=== PATIENT | female | born 1965 | race Caucasian/White ===

== ENCOUNTER 2018-01-28 23:24 | Emergency (ER) | payer SELFPAY ==
[~2018-01-28] VITALS: Ht 165.1 cm; Wt 56.7 kg
--- NOTE | 2018-01-29 01:25 | NUR ---
DR SHAKIRA DIXON MD AT BEDSIDE FOR MSE.
--- NOTE | 2018-01-29 01:47 | NUR ---
Patient discharged to home in stable conditon. Written and verbal after care instructions given. Patient verbalizes understanding of instructions.
[2018-01-29 01:50] VITALS: BP 144/70
== END 2018-01-29 01:51 | disposition home or self-care (01) ==
LOC: ER 23:26
DX: G89.29 Other chronic pain (principal); M54.9 Dorsalgia, unspecified
CPT/HCPCS: A4663

== ENCOUNTER 2018-03-02 23:20 | Emergency (ER) | payer SELFPAY ==
[~2018-03-02] VITALS: Ht 165.1 cm; Wt 55.3 kg
--- NOTE | 2018-03-02 23:43 | NUR ---
MD PEDRAZA AT BEDSIDE CONDUCTING MED EVAL
--- NOTE | 2018-03-03 00:02 | NUR ---
Patient discharged to home in stable conditon. Written and verbal after care instructions given. Patient verbalizes understanding of instructions. Patient reported a reduced amount of anxiety prior to discharge. Patient able to ambulate unassisted with steady gait. Patient left with all personal belongings.
[2018-03-03 00:06] VITALS: BP 111/63
== END 2018-03-03 | disposition home or self-care (01) ==
LOC: ER 23:20
DX: F13.239 Sedative, hypnotic or anxiolytic dependence with withdrawal, unspecified (principal); G89.29 Other chronic pain; Z88.8 Allergy status to other drugs, medicaments and biological substances
CPT/HCPCS: A4663

== ENCOUNTER 2018-03-04 23:24 | Emergency (ER) | payer SELFPAY ==
[~2018-03-04] VITALS: Ht 165.1 cm; Wt 55.3 kg
--- NOTE | 2018-03-04 23:35 | NUR ---
Dr. Cox at bedside for MSE.
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
--- NOTE | 2018-03-04 23:49 | NUR ---
Patient discharged to home in stable conditon. Written and verbal after care instructions given. Patient verbalizes understanding of instructions. Patient ambulated out of ER with steady gait, no acute signs of distress, VSS, all belongings taken.
[2018-03-04 23:52] VITALS: BP 92/58
== END 2018-03-04 23:52 | disposition home or self-care (01) ==
LOC: ER 23:27
DX: G89.29 Other chronic pain (principal); M54.9 Dorsalgia, unspecified; F41.9 Anxiety disorder, unspecified; Z88.8 Allergy status to other drugs, medicaments and biological substances
CPT/HCPCS: A4663

== ENCOUNTER 2018-04-15 16:36 | Emergency (ER) | payer SELFPAY ==
[~2018-04-15] VITALS: Ht 165.1 cm; Wt 55.3 kg
[2018-04-15 17:09] VITALS: BP 111/66
--- NOTE | 2018-04-15 17:09 | NUR ---
MSE COMPLETED, PT D/C'D HOME, ACI GIVEN, PT AMBULATED W/O DIFF/TOOK ALL BELONGINGS.
== END 2018-04-15 17:10 | disposition home or self-care (01) ==
LOC: ER 16:37
DX: G89.29 Other chronic pain (principal); M54.5 Low back pain; Z88.8 Allergy status to other drugs, medicaments and biological substances
CPT/HCPCS: A4663

== ENCOUNTER 2018-04-15 19:38 | Emergency (ER) | payer SELFPAY ==
[~2018-04-15] VITALS: Ht 160 cm; Wt 56.7 kg
--- NOTE | 2018-04-15 20:06 | NUR ---
Patient discharged to home in stable conditon. Written and verbal after care instructions given. Patient verbalizes understanding of instructions. Patient understands directions of pain medication prescription. VSS.
[2018-04-15 20:07] VITALS: BP 118/70
== END 2018-04-15 20:04 | disposition home or self-care (01) ==
LOC: ER 19:40
DX: G89.29 Other chronic pain (principal); M54.9 Dorsalgia, unspecified; Z88.8 Allergy status to other drugs, medicaments and biological substances
CPT/HCPCS: A4663

== ENCOUNTER 2018-05-15 02:19 | Emergency (ER) | payer SELFPAY ==
[~2018-05-15] VITALS: Ht 160 cm; Wt 54.4 kg
[2018-05-15] MEDS ORDERED: HYDROCODONE/APAP 5-325MG TABLET PO ONE (02:45)
[2018-05-15] MEDS ORDERED: HYDROCODONE/APAP 5-325MG TABLET ONE (02:51)
[2018-05-15 02:56] VITALS: BP 138/89
--- NOTE | 2018-05-15 02:56 | NUR ---
Patient discharged to home in stable conditon. Written and verbal after care instructions given. Patient verbalizes understanding of instructions. WALKED OUT OF ER WITH STEADY GAIT
== END 2018-05-15 03:01 | disposition home or self-care (01) ==
LOC: ER 02:23
DX: G89.29 Other chronic pain (principal); M54.9 Dorsalgia, unspecified; Z88.8 Allergy status to other drugs, medicaments and biological substances; Z79.891 Long term (current) use of opiate analgesic
CPT/HCPCS: A4663

== ENCOUNTER 2018-05-21 07:31 | Emergency (ER) | payer SELFPAY ==
[~2018-05-21] VITALS: Ht 160 cm; Wt 54.4 kg
--- NOTE | 2018-05-21 07:45 | NUR ---
PT IS IN ROOM #2B, WAITING FOR DR PEDRAZA EVALUATION.
--- NOTE | 2018-05-21 08:51 | NUR ---
PT WAS D/C TO HOME. D/C INSTRUCTIONS GIVEN TO THE PT.
[2018-05-21 08:52] VITALS: BP 132/77
== END 2018-05-21 08:54 | disposition home or self-care (01) ==
LOC: ER 07:33
DX: M54.9 Dorsalgia, unspecified (principal); Z88.8 Allergy status to other drugs, medicaments and biological substances
CPT/HCPCS: 99283; A4663

== ENCOUNTER 2018-06-20 16:38 | Emergency (ER) | payer SELFPAY ==
[~2018-06-20] VITALS: Ht 160 cm; Wt 54.4 kg
--- NOTE | 2018-06-20 17:05 | NUR ---
Patient discharged to home in stable conditon and steady gait. Written and verbal after care instructions given to patient. Patient verbalizes understanding of instructions.
--- NOTE | 2018-06-20 17:07 | NUR ---
Security was requested to escort the patient.
== END 2018-06-20 17:07 | disposition home or self-care (01) ==
LOC: ER 16:39
DX: G89.29 Other chronic pain (principal); M54.5 Low back pain; Z88.8 Allergy status to other drugs, medicaments and biological substances
CPT/HCPCS: A4663